=== PATIENT | female | born 1950 | race Caucasian/White ===

== ENCOUNTER 2017-08-10 12:15 | Emergency (ER) | payer MEDICARE, OTHER ==
--- OUTSIDE RECORDS SUMMARY | 2017-08-10 12:37 | XMS REPORT ---
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 Payers Type Date Identification Numbers Payment Provider Subscriber Medicare Primary Policy Number: [id number] Medicare Melissa Carlson [facility] [address] PayID: [id number] [place] [address] Problems Date Description Provider Status Onset: 08/18/2013 Benign essential hypertension Hector Villeda PA Active Onset: 08/18/2013 Malignant neoplasm of female breast Hector Villeda PA Active Onset: 11/19/2016 Mixed hyperlipidemia Jazmyne Sands MD Active Onset: 11/19/2016 Impaired fasting glycaemia Jazmyne Sands MD Active Onset: 11/19/2016 Liver function tests abnormal Jazmyne Sands MD Active Onset: 11/19/2016 Mild major depression, single episode Jazmyne Sands MD Active Onset: 11/19/2016 Adult health examination Jazmyne Sands MD Active Onset: 07/30/2017 Personal history of primary malignant Jazmyne Sands MD Active neoplasm of breast Family History Date Family Member(s) Problem(s) Comments Children 2 Siblings 3 Social History Type Date Description Comments Education Highest Level Completed Master's Degree Marital Status Lives With Alone Lives With Son 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, 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 Cigarette Use Never Smoked Cigarettes ETOH Use Consumes 1 glass of wine per day Smoking Patient has never smoked Daily Caffeine Consumes on average 2 cups of coffee per day Allergies, Adverse Reactions, Alerts Date Description Reaction Status Severity Comments 08/18/2013 Cipro active Medications Medication Date Status Form Strength Qnty SIG Indications Ordering Provider Ondansetron Active Tablets 4mg 30tabs 1 tablet by Edi Sands Dispers mouth every MD Jazmyne 8 hours as needed for nausea/vomi ting Lisinopril Active Tablets 20mg 90tabs take 1 I10 Marisa Sands tablet by MD Jazmyne mouth every day - please schedule office visit Immunizations CPT Code Status Date Vaccine Reaction Lot # [id number] Given 05/09/2017 Fluzone Highdose Age 65 And Over Given At Pharmacy Preservative & Antibiotic Free [id number] Given 05/19/2016 Fluzone Highdose Age 65 And Over [facility] Preservative & Antibiotic Free 98163 Given 07/03/2015 Tdap (Adacel) Ages 7 And Above [id number] Only [id number] Given 07/03/2015 Prevnar 13 Pneumococal Conjugate [id number] Vaccine Vital Signs Date Vital Result Comment 07/30/2017 Weight 154.00 lb Heart Rate 76 /min BP Systolic 110 mmHg BP Diastolic 70 mmHg Respiratory Rate 18 /min Height 66.75 inches 5'6.75"11/19/16 BMI (Body Mass Index) 24.3 kg/m2 05/28/2017 Weight 154.00 lb Heart Rate 76 /min BP Systolic 142 mmHg BP Diastolic 70 mmHg BP Systolic Recheck 138 mmHg BP Diastolic Recheck 80 mmHg Respiratory Rate 18 /min Height 66.75 inches 5'6.75"11/19/16 BMI (Body Mass Index) 24.3 kg/m2 11/19/2016 Weight 148.00 lb Heart Rate 84 /min BP Systolic 122 mmHg BP Diastolic 70 mmHg Respiratory Rate 18 /min Height 66.75 inches 5'6.75"11/19/16 BMI (Body Mass Index) 23.4 kg/m2 07/30/2016 Weight 155.00 lb Heart Rate 70 /min BP Systolic 142 mmHg BP Diastolic 74 mmHg Respiratory Rate 18 /min Height 66.75 inches 5'6.75" BMI (Body Mass Index) 24.5 kg/m2 04/01/2016 Weight 155.00 lb Heart Rate 96 /min BP Systolic 138 mmHg BP Diastolic 70 mmHg Respiratory Rate 18 /min Height 66.5 inches 5'6.50" BMI (Body Mass Index) 24.6 kg/m2 01/02/2016 Weight 155.00 lb Heart Rate 72 /min BP Systolic 140 mmHg No Meds This Am BP Diastolic 90 mmHg No Meds This Am BP Systolic Recheck 146 mmHg BP Diastolic Recheck 90 mmHg Respiratory Rate 18 /min Height 66.5 inches 5'6.50" BMI (Body Mass Index) 24.6 kg/m2 07/03/2015 Weight 159.00 lb Heart Rate 84 /min BP Systolic 136 mmHg BP Diastolic 88 mmHg Respiratory Rate 18 /min Height 66.5 inches 5'6.50" BMI (Body Mass Index) 25.3 kg/m2 11/01/2014 Weight 149.00 lb Heart Rate 74 /min BP Systolic 148 mmHg BP Diastolic 80 mmHg BP Systolic Recheck 142 mmHg BP Diastolic Recheck 84 mmHg Respiratory Rate 18 /min Height 66.75 inches 5'6.75" BMI (Body Mass Index) 23.5 kg/m2 04/24/2014 Weight 148.00 lb Heart Rate 70 /min BP Systolic 144 mmHg BP Diastolic 86 mmHg Respiratory Rate 18 /min Height 66.75 inches 5'6.75" 11/15/2013 BP Systolic 152 mmHg BP Diastolic 84 mmHg 11/15/2013 Body Temperature 98.7 F Weight 144.00 lb Heart Rate 100 /min BP Systolic 178 mmHg BP Diastolic 90 mmHg Respiratory Rate 17 /min Height 57 inches 4'9" 10/04/2013 BP Systolic 152 mmHg BP Diastolic 88 mmHg 10/04/2013 Body Temperature 98.1 F Weight 147.00 lb Heart Rate 80 /min BP Systolic 160 mmHg No Meds Yet BP Diastolic 90 mmHg No Meds Yet Respiratory Rate 18 /min Height 57 inches 4'9" 08/18/2013 Weight 149.00 lb Heart Rate 76 /min BP Systolic 130 mmHg BP Diastolic 88 mmHg Respiratory Rate 18 /min Height 57 inches 4'9" Results Test Date Test Result H/L Range Note Hemoglobin A1c 05/25/2017 Glycohemoglobin (A1c) 6.2 % 4.2-6.3 1, 2 eAG 131 mg/dL 1 Lipid 05/25/2017 Cholesterol 253 mg/dL High <200 1, 3 Triglycerides 103 mg/dL <150 1, 4 HDL Cholesterol 82 mg/dL >40 1, 5 LDL-Cholesterol 150 mg/dL < 100 1, 6 Laboratory test finding 05/25/2017 Thyroid Stim 2.89 uIU/mL 0.30-4.20 1 Hormone Comprehensive Met 05/25/2017 Glucose 131 mg/dL High 74-106 1 Panel-FCMG BUN 8 mg/dL 7-18 1 Creatinine 0.6 mg/dL 0.6-1.3 1 Glom Filtration Rate, Estimate >60 mL/min >60 1 If >60 mL/min >60 1, 7 BUN/Creat 13.3 ratio 1 Sodium 135 mmol/L Low 136-145 1 Potassium 4.1 mmol/L 3.5-5.1 1 Chloride 101 mmol/L 98-107 1 Carbon Dioxide 25 mmol/L 21-32 1 Anion Gap 9 mEq/L 8-16 1 Calcium 9.3 mg/dL 8.5-10.1 1 Total Protein 7.4 g/dL 6.4-8.2 1 Albumin 4.1 g/dL 3.4-5.0 1 Globulin 3.3 g/dL 1.9-4.3 1 Alb/Glob 1.2 ratio 1 Bilirubin,Total 1.2 mg/dL High 0.2-1.0 1 Sgot/Ast 182 U/L High 15-37 1 SGPT/Alt 119 U/L High 12-78 1 Alkaline Phosphatase 92 U/L 45-117 1 Ova & Parasite 05/14/2017 Cryptosporidium Specific NEGATIVE FOR CRY 8, 9 Antigen Screen Ag <SEE NOTE> Giardia Specific Antigen NEGATIVE FOR NAVYA <SEE NOTE> 8, 10 Lipid Panel 11/19/2016 Cholesterol 267 mg/dL High <200 11, 12 Triglycerides 84 mg/dL <150 11, 13 HDL Cholesterol 111 mg/dL >40 11, 14 LDL-Cholesterol 139 mg/dL < 100 11, 15 Laboratory test finding 11/19/2016 Thyroid Stim Hormone 2.28 uIU/mL 0.30- 4.20 11 Slide Review (SEE NOTE) 11, 16 Hepatitis C 11/19/2016 Signal/Cutoff ratio < 0.1 s/corat 0.0-0.9 11, 17 Antibody CBC With Auto Diff 11/19/2016 White Blood Count 6.2 K/uL 3.1-10.7 11 Red Blood Count 4.12 M/uL 3.90-5.40 11 Hemoglobin 14.3 gm/dL 11.6-15.8 11 Hematocrit 41.9 % 36.0-46.1 11 Mean Cell Volume 101.7 fl High 80.9-99.0 11 Mean Corpuscular HGB 34.7 pg High 25.9-32.7 11 Mean Corpuscular HGB Conc 34.1 g/dL 30.8-34.3 11 Platelet Count TNP K/uL 150-400 11, 18 Red Cell Distri Width SD 44.0 fl 3-47 11 Red Cell Distri Width %CV 11.9 % 11.7-14.4 11 Mean Platelet Volume 13.0 fL High 8.9-12.4 11 Neut% 66.1 % 40.4-72.8 11 Lymph % 22.4 % 20.0-42.0 11 Early % 9.2 % 4.3-13.2 11 Eo% 1.8 % 0.0-6.6 11 Bas% 0.5 % 0.0-1.1 11 Neut# 4.10 K/uL 1.8-7.0 11 Lymph # 1.39 K/uL 1.0-4.0 11 Early # 0.57 K/uL 0.3-0.9 11 Eos # 0.11 K/uL 0.0-0.5 11 Baso # 0.03 K/uL 0.0-0.1 11 BMP (Basic) 11/19/2016 Glucose 129 mg/dL High 74-106 11 BUN 11 mg/dL 7-18 11 Creatinine 0.5 mg/dL Low 0.6-1.3 11 Glom Filtration Rate, Estimate >60 mL/min >60 11 If >60 mL/min >60 11, 19 BUN/Creat 22.0 ratio 11 Sodium 137 mmol/L 136-145 11 Potassium 3.2 mmol/L Low 3.5-5.1 11 Chloride 94 mmol/L Low 98-107 11 Carbon Dioxide 31 mmol/L 21-32 11 Anion Gap 12 mEq/L 8-16 11 Calcium 10.0 mg/dL 8.5-10.1 11 Hemoglobin A1c 11/19/2016 Glycohemoglobin (A1c) 5.8 % 4.2-6.3 11, 20 eAG 120 mg/dL 11 Lipid 07/22/2016 Cholesterol 306 mg/dL High 50-199 Triglycerides 120 mg/dL 30-200 HDL 95 mg/dL High 35-85 21 Chol/ HDL Ratio 3.2 ratio Low 3.7-5.6 VLDL 24 mg/dL 2-29 LDL (Calc) 187 mg/dL High 20-99 22 Basic (BMP) 07/22/2016 Sodium 134 mmol/L 134-142 Potassium 4.8 mmol/L 3.5-5.2 Chloride 96 mmol/L Low 97-109 Carbon Dioxide 29 mmol/L 24-34 Glucose 131 mg/dL High 70-105 BUN 11 mg/dL 6-26 Creatinine 0.6 mg/dL 0.5-1.4 Calcium 10.5 mg/dL High 8.5-10.2 Anion Gap 14 mmol/L 6-14 Non Belkis Egfr >60 >60 23 Belkis Egfr >60 >60 24 Laboratory test finding 07/22/2016 Hemoglobin A1c 6.0 % High 4.1-5.9 Hepatic Panel (LFT) 07/22/2016 Total Protein 7.1 g/dL 6.0-8.0 Albumin 4.9 g/dL 3.6-4.9 Total Bilirubin 1.2 mg/dL 0.1-1.3 Direct Bilirubin 0.2 mg/dL 0.0-0.4 Alkaline Phosphatase 56 U/L 24-140 Alt 49 U/L High 3-42 Ast 40 U/L 8-42 Hepatic Panel (LFT) 03/03/2016 Total Protein 7.3 g/dL 6.0-8.0 Albumin 4.6 g/dL 3.6-4.9 Total Bilirubin 1.3 mg/dL 0.1-1.3 Direct Bilirubin 0.2 mg/dL 0.0-0.4 Alkaline Phosphatase 78 U/L 24-140 Alt 121 U/L High 3-42 Ast 224 U/L High 8-42 Basic (BMP) 03/03/2016 Sodium 135 mmol/L 134-142 Potassium 4.5 mmol/L 3.5-5.2 Chloride 100 mmol/L 97-109 Carbon Dioxide 27 mmol/L 24-34 Glucose 131 mg/dL High 70-105 BUN 11 mg/dL 6-26 Creatinine 0.7 mg/dL 0.5-1.4 Calcium 10.1 mg/dL 8.5-10.2 Anion Gap 13 mmol/L 6-14 Non Belkis Egfr >60 >60 25 Belkis Egfr >60 >60 26 Lipid 03/03/2016 Cholesterol 277 mg/dL High 50-199 Triglycerides 110 mg/dL 30-200 HDL 71 mg/dL 35-85 27 Chol/ HDL Ratio 3.9 ratio 3.7-5.6 VLDL 22 mg/dL 2-29 LDL (Calc) 184 mg/dL High 20-99 28 Laboratory test finding 04/24/2014 Cytology Pap See Note 29 Laboratory test finding 11/15/2013 Throat Culture Complete See Note 30 1 R73.01 E78.2 F32.0 I10 2 Elevated levels of HbA1c suggest the need for more aggressive treatment of glycemia. The [place] [employer] recommends that a primary goal of therapy should be a HbA1c of <7% and that physicians should re-evaluate the treatment regimen in patients with HbA1c values consistently >8%. 3 Reference Guidelines*: Desirable: ........... < 200 mg/dL Borderline High: ..... 200-239 mg/dL High: ................ >=240 mg/dL * The National Cholesterol Education Program (NCEP) 4 Reference Guidelines*: Normal: ............. < 150 mg/dL Borderline High: .... 150-199 mg/dL High: ............... 200-499 mg/dL Very High: .......... > 500 mg/dL * Source: National Cholesterol Education Program (NCEP) 5 Reference Guidelines*: Low HDL: ..... < 40 mg/dL Normal: ..... 40-60 mg/dL Desirable: ... > 60 mg/dL *The National Cholesterol Education Program(NCEP) 6 Reference Guidelines*: Optimal:........... <100 mg/dL Near Optimal....... 100-129 mg/dL Borderline High.... 130-159 mg/dL High............... 160-189 mg/dL Very High.......... >=190 mg/dL * Source: National Cholesterol Education Program (NCEP) 7 Note: Persistent reduction for 3 months or more in an eGFR <60 mL/min/1.73 m2 defines CKD. Patients with eGFR values >/=60 mL/min/1.73 m2 may also have CKD if evidence of persistent proteinuria is present. The original MDRD equation for estimated GFR is not valid for patients less than 18 years of age. Additional information may be found at www.kdoqi.org. 8 R19.5 9 NEGATIVE FOR CRYPTOSPORIDIUM SPECIFIC ANTIGEN 10 NEGATIVE FOR GIARDIA SPECIFIC ANTIGEN. The specimen will be held for 5 days. Additional testing may be performed upon request if the antigen tests are negative, and the patient is still symptomatic or has traveled to an endemic region. Method: Alere Quik Chek Rapid Membrane Enzyme Immunoassay 11 E11.9 I10 Z11.59 E78.2 F32.0 12 Reference Guidelines*: Desirable: ........... < 200 mg/dL Borderline High: ..... 200-239 mg/dL High: ................ >=240 mg/dL * The National Cholesterol Education Program (NCEP) 13 Reference Guidelines*: Normal: ............. < 150 mg/dL Borderline High: .... 150-199 mg/dL High: ............... 200-499 mg/dL Very High: .......... > 500 mg/dL * Source: National Cholesterol Education Program (NCEP) 14 Reference Guidelines*: Low HDL: ..... < 40 mg/dL Normal: ..... 40-60 mg/dL Desirable: ... > 60 mg/dL *The National Cholesterol Education Program(NCEP) 15 Reference Guidelines*: Optimal:........... <100 mg/dL Near Optimal....... 100-129 mg/dL Borderline High.... 130-159 mg/dL High............... 160-189 mg/dL Very High.......... >=190 mg/dL * Source: National Cholesterol Education Program (NCEP) 16 Instrument flagged sample for slide review. Less than 10% Bands seen, no other immature WBC's seen. RBC morphology essentially normal. Platelet estimate=SLIGHT DECREASE 17 INFCE Result Units: s/co ratio Negative: < 0.8 Indeterminate: 0.8 - 0.9 Positive: > 0.9 The CDC recommends that a positive HCV antibody result be followed up with a HCV Nucleic Acid Amplification test ([id number]). Performed at: - [facility] [address] [id number] [employer]: Shanon Mendez MD, Phone: [phone] UNABLE TO REPORT PLT COUNT DUE TO PLT CLUMPING. HOWEVER, PLATELET ESTIMATE FROM PERIPHERAL SMEAR APPEARS TO BE SLIGHTLY DECREASED. 19 Note: Persistent reduction for 3 months or more in an eGFR <60 mL/min/1.73 m2 defines CKD. Patients with eGFR values >/=60 mL/min/1.73 m2 may also have CKD if evidence of persistent proteinuria is present. The original MDRD equation for estimated GFR is not valid for patients less than 18 years of age. Additional information may be found at www.kdoqi.org. 20 Elevated levels of HbA1c suggest the need for more aggressive treatment of glycemia. The [place] [employer] recommends that a primary goal of therapy should be a HbA1c of <7% and that physicians should re-evaluate the treatment regimen in patients with HbA1c values consistently >8%. 21 Per NCEP ATP III Guidelines: Results lower than 40 mg/dL are suggestive of increased risk for coronary artery disease. Results > or=to 60 mg/dL are considered a negative risk factor. 22 Per NCEP ATP III Guidelines: Normal Population <130 Patients with medical conditions: CHD/DM Optimal: <100 Borderline high: 130-159 High: 160-189 Very high: >189 23 Concerning GFR Guidelines: Normal function or mild renal disease, if clinically at risk: >/=60 mL/min Moderately decreased: 30-59 Severely decreased: 15-29 Renal failure: <15 Glomerular Filtration Rate (GFR) is estimated based on the MDRD equation, which assumes a steady state for creatinine as recommended by the National Kidney Disease Education Program in conjunction with the National Institutes of Health and the National Kidney Foundation. Clinical conditions in which it may be necessary to measure GFR by using clearance methods include extremes of age and body size, severe malnutrition or obesity, diseases of skeletal muscle, paraplegia or quadriplegia, vegetarian diet, rapidly changing kidney function, and calculation of the dose of potentially toxic drugs that are excreted by the kidneys. 24 Concerning GFR Guidelines for Americans: Normal function or mild renal disease, if clinically at risk: >/=60 mL/min Moderately decreased: 30-59 Severely decreased: 15-29 Renal failure: <15 25 Concerning GFR Guidelines: Normal function or mild renal disease, if clinically at risk: >/=60 mL/min Moderately decreased: 30-59 Severely decreased: 15-29 Renal failure: <15 Glomerular Filtration Rate (GFR) is estimated based on the MDRD equation, which assumes a steady state for creatinine as recommended by the National Kidney Disease Education Program in conjunction with the National Institutes of Health and the National Kidney Foundation. Clinical conditions in which it may be necessary to measure GFR by using clearance methods include extremes of age and body size, severe malnutrition or obesity, diseases of skeletal muscle, paraplegia or quadriplegia, vegetarian diet, rapidly changing kidney function, and calculation of the dose of potentially toxic drugs that are excreted by the kidneys. 26 Concerning GFR Guidelines for Americans: Normal function or mild renal disease, if clinically at risk: >/=60 mL/min Moderately decreased: 30-59 Severely decreased: 15-29 Renal failure: <15 27 Per NCEP ATP III Guidelines: Results lower than 40 mg/dL are suggestive of increased risk for coronary artery disease. Results > or=to 60 mg/dL are considered a negative risk factor. 28 Per NCEP ATP III Guidelines: Normal Population <130 Patients with medical conditions: CHD/DM Optimal: <100 Borderline high: 130-159 High: 160-189 Very high: >189 29 Cytology Laboratory [address] [place] [address], [address] [place] [address] CYTOLOGY REPORT Name: Melissa Carlson : 1950 (Age: 63) Sex: F Location[place] [facility] [place] Rec. # [id number] Date Collected: 04/24/2014 Billing #: [id number] Date Received: 04/24/2014 Requisition # [id number] Physician(s): HECTOR DURAN Source of Specimen: ENDOCERVICAL/ECTOCERVICAL THIN PREP Clinical Information: Date of Last Menstrual Period: 15 yrs ago Menstrual History: Post menopausal HPV/Infection History: HPV Positive: in her 20's Interpretation: NEGATIVE FOR INTRAEPITHELIAL LESION OR MALIGNANCY. Specimen Adequacy: SATISFACTORY FOR EVALUATION. Additional Findings: ENDOCERVICAL/TRANSFORMATION ZONE ABSENT. tfn Electronic Signature RICKEY Mcqueen (ASCP) Reported: 04/26/2014 [facility] Laboratory [facility] ICD-9 Code(s) V72.31 30 NORMAL THROAT POLA Procedures Date CPT Code Description Status Comment 06/19/2017 08471 Echography Pelvic Limited Completed Or Follow-Up 01/15/2017 Colonoscopy Completed adenoma - repeat in 5 years Document: 01/15/17 - Surgical Pathology ReportsDocument: 02/06/17 - Gastroenterology 01/05/2017 Mammogram Completed Document: 01/05/17 - Digital Mammography Screening 03/18/2016 96163 Bone Density Study (Dexa) Completed Axial Skeleton (Hips,Pelvis,Spine) 03/18/2016 Bone Mineral Density Test Completed Encounters Type Date Location Provider CPT E/M Dx Office Visit 05/28/2017 2:45p [facility] [place] [address] F32.0 R73.01 E78.2 R94.5 I10 C50.919 R11.10 Office Visit 11/19/2016 9:30a [facility] [place] [address] I10 E78.2 R73.01 R94.5 F32.0 R11.10 Z12.31 Z12.11 Office Visit 07/30/2016 10:30a [facility] Hector Villeda [place] G0439 Z00.00 I10 E78.2 E11.9 Office Visit 04/01/2016 8:45a [place] [address] I10 R94.5 R73.01 E78.2 Office Visit 01/02/2016 9:00a [place] [address] I10 Office Visit 11/01/2014 8:45a [place] [address] 401.1 472.0 Plan of Care 07/30/2017 - Jazmyne Sands MDZ00.00 Encntr for general adult medical exam w/o abnormal findingsComments:annual medicare well visit done. screening for depression negative (PHQ2 score 0) updated list ofconsulting doctors. updated medication list see medicare wellness exam form .Follow up:6 mo follow-up with labs zzyvmY27.0 Major depressive disorder, single episode, mildComments:doing much better on no [id number] Essential (primary) hypertensionComments:at goal on current medication - refill today - check labsE78.2 Mixed hyperlipidemiaNew Labs:LDL Cholesterol ProfileComments:diet controlled.R73.01 Impaired fasting glucoseNew Labs:Comprehensive Metabolic PanelGlycohemoglobin [id number]:diet controlled - she is working on weight loss.R94.5 Abnormal results of liver function studiesNew Labs:Liver Function TestsComments:reviewed ultrasound - this shows probably fatty liver - repeat labs today - if worsening refer to GI. if improving, will follow.Follow up: [facility] give [facility] Personal history of malignant neoplasm of breastComments:no new masses - will be due for her mammogram after M79.671 Pain in RIGHT footComments:will refer to podiatry for glass in toe.Referral:Frankie Landers DPM,
[2017-08-10 13:09] VITALS: BP 159/96
--- NOTE | 2017-08-10 14:08 | UC ---
Lower Extremity/Ankle HPI - HPI Summary HPI Summary: Pt presents with c/o of possible FB in right great toe. Pt states she think she stepped on piece of broken glass about a month ago and the wound has not completely healed since initial injury. - History of Current Complaint Chief Complaint: KENkin Stated Complaint: RIGHT FOOT COMPLAINT Time Seen by Provider: 08/10/17 13:34 Hx Obtained From: Patient ?: No Onset/Duration: Sudden Onset, Lasting Weeks, Still Present Severity Initially: Mild Severity Currently: Mild Aggravating Factor(s): Other - riding a bicycle Alleviating Factor(s): Rest Able to Bear Weight: Yes - Risk Factors Gout Risk Factors: Age Over 40 DVT Risk Factors: Negative Septic Arthritis Risk Factor: Negative - Allergies/Home Medications Allergies/Adverse Reactions: Allergies Allergy/AdvReac Type Severity Reaction Status Date / Time Ciprofloxacin [From Cipro] Allergy Rash Verified 08/10/17 13:04 PMH/Surg Hx/FS Hx/Imm Hx Previously Healthy: Yes - Surgical History Surgical History: Yes Surgery Procedure, Year, and Place: 07/2015 Lleft elbow fracture [facility] [place] RIGHT BREAST LUMPECTOMY WITH AXILLARY DISSECTION, [facility]. TONSILLECTOMY A CHILD. COSMETIC NASAL/CHIN SURGERY [facility]. 1993 LEFT KNEE ACL REPAIR [facility]. LAPAROSCOPIC REMOVAL OF ABDOMINAL ABSCESS,. OPEN RUPTURED APPENDECTOMY, [facility]. 2006 LEFT KNEE SURGERY, [facility] - Family History Known Family History: Positive: Cardiac Disease - Social History Occupation: Retired Lives: With Family Alcohol Use: Occasionally Alcohol Amount: STATES ONLY WHITE WINE, WILL REFRAIN OVER WEEKEND Substance Use Type: None Smoking Status (MU): Never Smoked Tobacco Have You Smoked in the Last Year: No - Immunization History Most Recent Influenza Vaccination: Not the Most Recent Pneumonia Vaccination: 06/23/15 Review of Systems Constitutional: Negative Skin: Other - chronic wound Eyes: Negative ENT: Negative Respiratory: Negative Cardiovascular: Negative Gastrointestinal: Negative Genitourinary: Negative Motor: Negative Neurovascular: Negative Musculoskeletal: Negative Neurological: Negative Psychological: Negative Is Patient Immunocompromised?: No All Other Systems Reviewed And Are Negative: Yes Physical Exam Triage Information Reviewed: Yes Appearance: Well-Appearing Vital Signs: Initial Vital Signs Temp 98.4 F 08/10/17 13:04 Pulse 93 08/10/17 13:04 Resp 18 08/10/17 13:04 BP 159/96 08/10/17 13:04 Vital Signs Reviewed: Yes Eye Exam: Normal ENT Exam: Normal Dental Exam: Normal Neck exam: Normal Respiratory Exam: Normal Cardiovascular Exam: Normal Musculoskeletal Exam: Normal Neurological Exam: Normal Psychological Exam: Normal Skin Exam: Other - 5mm linear wound with dry scab, callous on right great toe, medial aspect, mid toe, rough edge, not sharp no discharge, non erythematous. mild tenderness. Lower Extremity Course/Dx - Differential Dx/Diagnosis Differential Diagnosis/HQI/PQRI: Foreign Body, Infection Provider Diagnoses: chronic wound. Fb? Discharge - Discharge Plan Condition: Stable Disposition: HOME Patient Education Materials: Acute Wound Care (ED), Acute Wounds (ED) Referrals: Jazmyne Sands MD [Primary Care Provider] - If Needed Additional Instructions: Please follow up with your PCP or return to clinic as needed. Please soak the affected toe in warm water and epsom salts at least once a day and use a clean, wet washcloth to gentle wash/debride the affected area. You may want to try a pumice stone to the area as well.
--- NOTE | 2017-08-10 14:30 | RAD ---
Indication: Evaluate for foreign body. 3 views of the right great toe demonstrates no evidence of radiopaque foreign body. IMPRESSION: NO RADIOPAQUE FOREIGN BODY IS NOTED.
== END 2017-08-10 14:27 | disposition home or self-care (01) ==
LOC: UCCORT 12:15
DX: S91.101A Unspecified open wound of right great toe without damage to nail, initial encounter (principal); X58.XXXA Exposure to other specified factors, initial encounter; Y93.9 Activity, unspecified; Y92.9 Unspecified place or not applicable; Z72.89 Other problems related to lifestyle
CPT/HCPCS: 99211; G0463

== ENCOUNTER 2017-12-15 15:13 | Emergency (ER) | payer MEDICARE ==
--- OUTSIDE RECORDS SUMMARY | 2017-12-15 15:45 | XMS REPORT ---
:1950 External Reference #:[id number] Author Organization [facility] Address [address], [address] [place] [address] Phone [phone] Care Team Providers Name Role Phone Jazmyne Sands MD Care Team Information Wireless Network Engineer Unavailable Jazmyne Sands MD Primary Care Physician Unavailable Payers Type Date Identification Numbers Payment Provider Subscriber Commercial Policy Number: [id number] [employer] Melissa Carlson PayID: [id number] [address] [address] [place] [address] Problems Date Description Provider Status Onset: 09/21/2017 Acquired renal cystic disease Star Reynolds M.D. Active Onset: 09/18/2017 Cystic disease of kidney Trever Martines MD Active Onset: 09/18/2017 Chronic nonalcoholic liver Trever Martines MD Active disease Onset: 09/18/2017 Liver function tests abnormal Trever Martines MD Active Onset: 02/06/2017 First degree hemorrhoids Trever Martines MD Active Onset: 02/06/2017 Benign neoplasm of colon Trever Martines MD Active Onset: 06/28/2014 Screening for malignant neoplasm Wilmar Guido of h[facility] Onset: 12/10/2016 Mixed hyperlipidemia Trever Martines MD Active Family History Date Family Member(s) Problem(s) Comments General Non Contributory : (age 69 Father due to Cancer Renal cancer Years) Mother due to Hypertension () : (age 86 Mother due to Heart Disease Years) Social History Type Date Description Comments Marital Status Patient is Lives With Negative For Alone Home Environment Lives Alone Diet Patient follows no dietary restrictions 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 Cigarette Use Never Smoked Cigarettes Smokeless Tobacco Never Used Smokeless Tobacco ETOH Use Consumes 1 glass of wine per day pt says 1/wk ETOH Use Rarely consumes wine Smoking Patient has never smoked Recreational Drug Use Denies Drug Use Daily Caffeine Patient consumes minimal amounts of 1 cup coffee daily caffeine Allergies, Adverse Reactions, Alerts Date Description Reaction Status Severity Comments 06/27/2014 Cipro active rash Medications Medication Date Status Form Strength Qnty SIG Indications Ordering Provider Lisinopril / Active Tablets 20mg Take 1 Unknown 0000 Tablet By Mouth Every Day Ondansetron / Active Tablets 4mg 1 by mouth Unknown 0000 Dispers every 4 hour as needed Multi Adult / Active Chewtabs 1 a day - Unknown Gummies 0000 sometimes forgets Golytely 12/10/ Hx Solution 236gm 4000ml drink half Z12.11 Trever Martines 2017 Rec the evening MD before and half the morning of the procedure (1 cup every 10') Dulcolax 12/10/ Hx Tablets DR 5mg 4tabs 4 tablets Z12.11 Trever Martines 2016 taken a 8pm MD the day before the procedure Magnesium 12/10/ Hx Solution 1.745GM/30 296ml 1 bottle po Z12.11 Trever Martines Citrate 2017 ML x one as MD directed Aleve / Hx Capsules 220mg 1 when Unknown 0000 needed Vital Signs Date Vital Result Comment 11/18/2017 BP Systolic Sitting Right Arm 132 mmHg BP Diastolic Sitting Right Arm 78 mmHg Heart Rate 87 /min Respiratory Rate 18 /min Height 67.5 inches 5'7.50" Weight 146.00 lb BMI (Body Mass Index) 22.5 kg/m2 BSA (Body Surface Area) 1.78 m2 [place] body weight in kilograms 62 09/21/2017 BP Systolic 129 mmHg BP Diastolic 81 mmHg Body Temperature 98.1 F Heart Rate 61 /min Respiratory Rate 14 /min Height 67.5 inches 5'7.50" [place] body weight in kilograms 62 O2 % BldC Oximetry 99 % Pain Level 0 09/18/2017 BP Systolic Sitting Left Arm 120 mmHg BP Diastolic Sitting Left Arm 80 mmHg Heart Rate 72 /min Respiratory Rate 16 /min Height 67 inches 5'7" Weight 149.00 lb BMI (Body Mass Index) 23.3 kg/m2 BSA (Body Surface Area) 1.78 m2 [place] body weight in kilograms 61 02/06/2017 BP Systolic Sitting Left Arm 140 mmHg BP Diastolic Sitting Left Arm 82 mmHg Heart Rate 80 /min Respiratory Rate 16 /min Height 67 inches 5'7" Weight 150.00 lb BMI (Body Mass Index) 23.5 kg/m2 BSA (Body Surface Area) 1.79 m2 [place] body weight in kilograms 61 12/10/2016 BP Systolic Sitting Left Arm 140 mmHg BP Diastolic Sitting Left Arm 72 mmHg Heart Rate 76 /min Respiratory Rate 16 /min Height 67 inches 5'7" Weight 155.00 lb BMI (Body Mass Index) 24.3 kg/m2 BSA (Body Surface Area) 1.81 m2 [place] body weight in kilograms 61 06/28/2014 BP Systolic Sitting Right Arm 142 mmHg BP Diastolic Sitting Right Arm 85 mmHg Heart Rate 90 /min Respiratory Rate 16 /min Height 67 inches 5'7" Weight 147.00 lb BMI (Body Mass Index) 23.0 kg/m2 BSA (Body Surface Area) 1.77 m2 Results Test Date Test Result H/L Range Note Laboratory test finding 09/18/2017 Ferritin 1107 ng/mL High 8-252 1 HCV Rna,Maritza,Qual,RFLX Quant Negative Negative 1, 2 Iron-Tibc-%Sat 09/18/2017 Serum Iron 161 g/dL 50-170 1 Total Iron Binding Capacity 333 g/dL 250-450 1 Transferrin %Saturation 48 % 12-57 1 Celiac Disease Comp AB Profile 09/18/2017 Immunoglobulin A 131 mg/dL 87- 352 1 Antigliadin Abs, IgG 7 units 0-19 1, 3 Antigliadin Abs, IgA 2 units 0-19 1, 4 Endomysial IgA Antibody Negative Negative 1 t-Transglutaminase IgA <2 U/mL 0-3 1, 5 t-Transglutaminase IgG <2 U/mL 0-5 1, 6 Laboratory test 09/18/2017 Anti-Nuclear Antibodies Negative AU/mL Negative 1 finding Direct Actin (Smooth Muscle) Antibody 8 units 0-19 1, 7 Mitochondrial (M2) Antibodies 0.4 units 0.0-20.0 1, 8 Onaby-6-Oxqcroeqrph,Serum 96 mg/dL 90-200 1 Ceruloplasmin 28.5 mg/dL 19.0-39.0 1 Protein Electro.,S 09/18/2017 Protein,Total,Serum 6.9 g/dL 6.0-8.5 1 Albumin 3.8 g/dL 2.9-4.4 1 Rvgvo-3-Wtclrham 0.2 g/dL 0.0-0.4 1 Gvbuk-8-Ymajwtbv 0.9 g/dL 0.4-1.0 1 Beta Globulin 1.2 g/dL 0.7-1.3 1 Gamma Globulin 0.8 g/dL 0.4-1.8 1 M-Arsenio Not Observed g/dL Not Observed 1 Globulin, Total 3.1 g/dL 2.2-3.9 1 A/G Ratio 1.2 0.7-1.7 1 Please Note: (SEE NOTE) 1, 9 P E Interpretation, Serum (SEE NOTE) 1, 10 PDF . 1 Laboratory test finding 09/18/2017 Hepatitis A Antibody -IgM Negative Negative 1 Hepatitis A AB, Total Negative Negative 1 Hepatitis B Core Antibody-IgM Negative Negative 1, 11 Hep B Core AB Total Negative Negative 1 HCV Rna,Maritza,Quant,RFLX [place] <pending> 1 Hepatitis C Antibody < 0.1 s/corat 0.0-0.9 1, 12 Xray 06/19/2017 Ultrasound, Abdomen Limited <pending> Laboratory test finding 12/11/2016 Glycohemoglobin A1c <pending> Laboratory test finding 04/24/2014 Cytology Pap See Note Laboratory test finding 11/15/2013 Throat Culture Complete See Note 1 R94.5 2 Negative: HCV RNA Not Detected Performed at: - [facility] [id number] Wafer Fabrication Operator: Shanon Mendez MD, Phone: [phone] Performed at: - [facility] [id number] Wafer Fabrication Operator: Alberto King MD, Phone: [phone] 3 Negative 0 - 19 Weak Positive 20 - 30 Moderate to Strong Positive >30 4 Negative 0 - 19 Weak Positive 20 - 30 Moderate to Strong Positive >30 5 Negative 0 - 3 Weak Positive 4 - 10 Positive >10 Tissue Transglutaminase (tTG) has been identified as the endomysial antigen. Studies have demonstr- ated that endomysial IgA antibodies have over 99% specificity for gluten sensitive enteropathy. 6 Negative 0 - 5 Weak Positive 6 - 9 Positive >9 7 Negative 0 - 19 Weak positive 20 - 30 Moderate to strong positive >30 Actin Antibodies are found in 52-85% of patients with autoimmune hepatitis or chronic active hepatitis and in 22% of patients with primary biliary cirrhosis. 8 Negative 0.0 - 20.0 Equivocal 20.1 - 24.9 Positive >24.9 Mitochondrial (M2) Antibodies are found in 90-96% of patients with primary biliary cirrhosis. 9 Protein electrophoresis scan will follow via computer, mail, or ethnology teacher delivery. 10 The SPE pattern appears essentially unremarkable. Evidence of monoclonal protein is not apparent. 11 Performed at: - [facility] [address] [id number] Wafer Fabrication Operator: Shanon Mendez MD, Phone: [phone] 12 INFCE Result Units: s/co ratio Negative: < 0.8 Indeterminate: 0.8 - 0.9 Positive: > 0.9 The CDC recommends that a positive HCV antibody result be followed up with a HCV Nucleic Acid Amplification test (009459). Procedures Date CPT Code Description Status Comment 01/15/2017 85454 Colonoscopy With Polypectomy Completed 01/15/2017 60777 Colonoscopy With Biopsy Completed 01/17/2014 Bone Mineral Density Test Completed 08/12/2013 Mammogram Completed 11/17/2008 Colonoscopy Completed at [place]/ no polyps per pt 12/12/1998 Mammogram Completed 12/06/1998 Mammogram Completed Encounters Type Date Location Provider CPT E/M Dx Office Visit 11/18/2017 3:00[place] [address] R94.5 K76.0 N28.1 Office Visit 09/21/2017 4:00p Urology Star Reynolds M.D. 46505 N28.1 Office Visit 09/18/2017 10:45[place] [address] R94.5 K76.0 Q61.8 Office Visit 02/06/2017 10:00[place] [address] K63.5 K64.0 Office Visit 12/10/2016 2:15[place] [address] Z12.11 Office Visit 06/28/2014 8:30a Surgical Office Dajuan Luciano, [address]22 V76.51 Elza Plan of Care Future Appointment(s):02/19/2018 11:30 am - Trever Martines MD at GI03/25/2018 4:00 pm - Star Reynolds M.D. at [email or web address]/18/2017 - Trever Martines, MDR94.5 Abnormal results of liver function studiesComments:Likely related to her h/o ETOH use but Ferritin is elevated along with % saturation was 48% - she does not want to proceed with liver biopsy but wants to consider checking another set of labs in couple of monthsFollow up:F/U in 3 vvgdufZ15.0 Fatty (change of) liver, not elsewhere classifiedComments:Likely related to previous ETOH use rather than FINN - she has stopped ETOHN28.1 Cyst of kidney, acquiredComments:She has seen Dr Reynolds
[2017-12-15 16:15] VITALS: BP 167/94
--- NOTE | 2017-12-15 17:15 | UC ---
UC General HPI - HPI Summary HPI Summary: pt is c/o a sore throat and cough since attending an outdoor graduation in the cold last week. she wants to see if it is strep throat. the past day or 2 she developed some vomiting and diarrhea. she states she has zofran at home but didn 't take it. she wants to just try one here. no travel hx outside the country and no recent antibiotic use. denies fever, cp and abdominal pain. - History of Current Complaint Chief Complaint: UCRespiratory Stated Complaint: NAUSEA, VOMITING, SORE THROAT Time Seen by Provider: 12/15/17 17:08 Hx Obtained From: Patient Onset/Duration: Gradual Onset Timing: Constant Pain Intensity: 0 Associated Signs & Symptoms: Positive: Cough, Diarrhea, Nausea, Vomiting. Negative: Dysuria, Fever, SOB, Wheezing - Allergy/Home Medications Allergies/Adverse Reactions: Allergies Allergy/AdvReac Type Severity Reaction Status Date / Time ciprofloxacin Allergy Rash Verified 12/15/17 16:16 PMH/Surg Hx/FS Hx/Imm Hx - Additional Past Medical History Additional PMH: CA, "GI issues"-currently under the care of GI, Dr Martines. cataract surgery last week. murmur. liver problem. - Surgical History Surgical History: Yes Surgery Procedure, Year, and Place: 07/2015 [place]left elbow fracture [facility] [place]. [place] RIGHT BREAST LUMPECTOMY WITH AXILLARY DISSECTION, [facility]. TONSILLECTOMY A CHILD. COSMETIC NASAL/CHIN SURGERY [facility]. 1993 LEFT KNEE ACL REPAIR [facility]. LAPAROSCOPIC REMOVAL OF ABDOMINAL ABSCESS,. OPEN RUPTURED APPENDECTOMY, [facility]. 2006 LEFT KNEE SURGERY, [facility] - Family History Known Family History: Positive: None, Cardiac Disease - Social History Lives: With Family Alcohol Use: Daily Alcohol Amount: wine Substance Use Type: None Smoking Status (MU): Never Smoked Tobacco Have You Smoked in the Last Year: No - Immunization History Most Recent Influenza Vaccination: Not the Most Recent Pneumonia Vaccination: 06/23/15 Vaccination Up to Date: Yes Review of Systems Constitutional: Negative Skin: Negative Eyes: Negative ENT: Sore Throat Respiratory: Cough Cardiovascular: Negative Gastrointestinal: Vomiting, Diarrhea, Nausea Genitourinary: Negative Motor: Negative Neurovascular: Negative Musculoskeletal: Negative Neurological: Negative Psychological: Negative Is Patient Immunocompromised?: No All Other Systems Reviewed And Are Negative: Yes Physical Exam Triage Information Reviewed: Yes Appearance: Well-Appearing Vital Signs: Initial Vital Signs Temp 98.7 F 12/15/17 16:06 Pulse 96 12/15/17 16:06 Resp 16 12/15/17 16:06 BP 167/94 12/15/17 16:06 Pulse Ox 96 12/15/17 16:06 Vital Signs Reviewed: Yes Eyes: Positive: Conjunctiva Clear ENT: Positive: Pharyngeal erythema, TMs normal, Uvula midline. Negative: Nasal congestion, Nasal drainage, Tonsillar swelling, Tonsillar exudate, Trismus, Muffled voice, Hoarse voice Neck: Positive: Supple, Nontender, No Lymphadenopathy Respiratory: Positive: Lungs clear, Normal breath sounds Cardiovascular: Positive: RRR, Pulses Normal, Murmur:Sys:Grade _?_/ - 2 Abdomen Description: Positive: Nontender, No Organomegaly, Soft. Negative: Distended, Guarding Bowel Sounds: Positive: Present Musculoskeletal: Positive: ROM Intact, No Edema Neurological: Positive: Alert Psychological: Positive: Age Appropriate Behavior Skin Exam: Normal Diagnostics - Laboratory Diagnostic Studies Completed/Ordered: rapid strep=neg Course/Dx - Course Course Of Treatment: non toxic. no acute abdomen. rapid strep=neg. no concern for pneumonia. tx supportive and pt already has zofran. no indication for antibiotics. need for close f/u and recheck d/w pt. - Differential Dx - Multi-Symptom Provider Diagnoses: sore throat, cough, vomiting, diarrhea Discharge - Sign-Out/Discharge Documenting (check all that apply): Discharge/Admit/Transfer - Discharge Plan Condition: Stable Disposition: HOME Patient Education Materials: Pharyngitis (ED), Acute Cough (ED), Acute Nausea and Vomiting (ED), Acute Diarrhea (ED) Referrals: Jazmyne Sands MD [Primary Care Provider] - 5 Days - Billing Disposition and Condition Condition: STABLE Disposition: HOME
[2017-12-15] MEDS ORDERED: Ondansetron ODT TAB* 4 MG PO ONE (17:21)
== END 2017-12-15 17:49 | disposition home or self-care (01) ==
LOC: UCCORT 15:13
DX: J02.0 Streptococcal pharyngitis (principal); Z88.3 Allergy status to other anti-infective agents; K76.9 Liver disease, unspecified; K92.9 Disease of digestive system, unspecified
CPT/HCPCS: 87651; 99211; A9270-GY; G0463

== ENCOUNTER 2018-03-18 08:16 | Emergency (ER) | payer MEDICARE ==
[2018-03-18 08:32] VITALS: BP 128/74
--- NOTE | 2018-03-18 08:53 | UC ---
Lower Extremity/Ankle HPI - HPI Summary HPI Summary: The patient is a 67-year-old female with a five-day history of a foreign body in her left foot. Onset occurred when she was walking barefoot on her driveway. The step causing a sharp pain. He has noted some purulent discharge from the foreign body entry site. She has had no fever or chills she denies any red streaks. Her last tetanus shot was 2014. - History of Current Complaint Chief Complaint: Ramses Stated Complaint: LEFT FOOT Time Seen by Provider: 03/18/18 08:43 Hx Obtained From: Patient Onset/Duration: Sudden Onset, Lasting Days Severity Initially: Mild Severity Currently: Mild Pain Intensity: 2 Pain Scale Used: 0-10 Numeric Alleviating Factor(s): Rest, Elevation Able to Bear Weight: Yes Feet (Multiple View): 1 - FB entrance site - Allergies/Home Medications Allergies/Adverse Reactions: Allergies Allergy/AdvReac Type Severity Reaction Status Date / Time ciprofloxacin Allergy Rash Verified 03/18/18 08:33 Home Medications: Home Medications Callus Removers 1 unit TOPICAL DAILY 03/18/18 [History Confirmed 03/18/18] Magnesium Sulfate CRYSTAL* [Epsom Salt*] 1 applic .SEE ORDER TID PRN 03/18/18 [ History Confirmed 03/18/18] PMH/Surg Hx/FS Hx/Imm Hx Previously Healthy: Yes Cardiovascular History: Hypertension - Surgical History Surgical History: Yes Surgery Procedure, Year, and Place: b/l eye lids 03/15/18 [facility] 2015 Left elbow fracture [facility] [place]. 1998 RIGHT BREAST LUMPECTOMY WITH AXILLARY DISSECTION, [facility]. TONSILLECTOMY A CHILD. COSMETIC NASAL/CHIN SURGERY [facility]. 1993 LEFT KNEE ACL REPAIR [facility]. LAPAROSCOPIC REMOVAL OF ABDOMINAL ABSCESS,. OPEN RUPTURED APPENDECTOMY, [facility]. 2006 LEFT KNEE SURGERY, [facility] - Family History Known Family History: Positive: Cardiac Disease - Social History Alcohol Use: Occasionally Alcohol Amount: wine Substance Use Type: None Smoking Status (MU): Never Smoked Tobacco Have You Smoked in the Last Year: No - Immunization History Most Recent Influenza Vaccination: Not the Most Recent Tetanus Shot: Unknown Most Recent Pneumonia Vaccination: 06/23/15 Vaccination Up to Date: Yes Review of Systems Constitutional: Negative Skin: Negative Eyes: Negative ENT: Negative Respiratory: Negative Cardiovascular: Negative Gastrointestinal: Negative Genitourinary: Negative Motor: Negative Neurovascular: Negative Musculoskeletal: Negative Neurological: Negative Psychological: Negative All Other Systems Reviewed And Are Negative: Yes Physical Exam Triage Information Reviewed: Yes Appearance: Well-Appearing, No Pain Distress, Well-Nourished Vital Signs: Initial Vital Signs Temp 97.7 F 03/18/18 08:22 Pulse 68 03/18/18 08:22 Resp 18 03/18/18 08:22 BP 128/74 03/18/18 08:22 Pulse Ox 100 03/18/18 08:22 Vital Signs Reviewed: Yes Neck: Positive: Supple, Nontender, No Lymphadenopathy Respiratory: Positive: Lungs clear, Normal breath sounds, No respiratory distress, No accessory muscle use Musculoskeletal: Positive: Other: - see image/antalgic gait Procedures - Procedure Summary Procedure Summary: PROCEDURE: FB REMOVAL LEFT FOOT PATIENT CAME HERE EXPECTING FB REMOVAL PROCEDURE EXPLAINED TIME OUT STERILE PREP ANEST WITH 2 CC LIDOCAINE SMALL INCISION MADE WITH #11 BLADE AREA EXPLORED FB LOCATED AND REMOVE WITH SPLINTER FORCEPS (GLASS0 AREA CLEANED AND STERILE DRESSING APPLIED TOLERATED PROCEDURE WELL Diagnostics - Radiology No standard instances Xray Interpretation: Positive (See Comments) - SMALL FOREIGN BODY ALONG THE PLANTAR ASPECT Radiology Interpretation Completed By: Radiologist Lower Extremity Course/Dx - Differential Dx/Diagnosis Provider Diagnoses: FOREIGN BODY REMOVAL LEFT FOOT Discharge - Sign-Out/Discharge Documenting (check all that apply): Patient Departure All imaging exams completed and their final reports reviewed: Yes - Discharge Plan Condition: Stable Disposition: HOME Prescriptions: Cephalexin CAP* [Keflex CAP*] 500 mg PO QID #12 cap Patient Education Materials: Soft Tissue Foreign Body (ED) Referrals: Jazmyne Sands MD [Primary Care Provider] - If Needed Additional Instructions: warm soapy soaks recheck in three days if not completely pain free - Billing Disposition and Condition Condition: STABLE Disposition: Home
[2018-03-18] MEDS ORDERED: Lidocaine 2% PF * 5 ML VIAL INJ ONE (09:07)
--- NOTE | 2018-03-18 09:12 | RAD ---
INDICATION: Foreign body. TECHNIQUE: 3 views of the left foot were obtained. FINDINGS: The bones are in normal alignment. No fracture is seen. There is linear calcific density which projects between the plantar aspect of the bases of the third and fourth proximal phalanges most consistent with a foreign body. IMPRESSION: SMALL FOREIGN BODY ALONG THE PLANTAR ASPECT OF THE FOOT DESCRIBED.
== END 2018-03-18 10:05 | disposition home or self-care (01) ==
LOC: UCCORT 08:16
DX: S90.852A Superficial foreign body, left foot, initial encounter (principal); W22.8XXA Striking against or struck by other objects, initial encounter; Y93.9 Activity, unspecified; Y92.9 Unspecified place or not applicable; Z88.1 Allergy status to other antibiotic agents; I10 Essential (primary) hypertension
CPT/HCPCS: 28190; 99212; G0463

== ENCOUNTER 2018-04-02 09:08 | Emergency (ER) | payer MEDICARE ==
[2018-04-02 11:24] VITALS: BP 137/73
--- NOTE | 2018-04-02 11:51 | UC ---
Lower Extremity/Ankle HPI - HPI Summary HPI Summary: Had a piece of glass removed from the bottom of her left foot on 03/18/18. Patient returns stating pain is persistent. Unable to weight-bear without significant discomfort. Concern there may be retained foreign body. No redness of the skin. No drainage. - History of Current Complaint Chief Complaint: KENkin Stated Complaint: LT FOOT INJURY Time Seen by Provider: 04/02/18 11:39 Hx Obtained From: Patient Onset/Duration: Sudden Onset, Lasting Weeks, Still Present Severity Initially: Moderate Severity Currently: Moderate Pain Intensity: 1 Pain Scale Used: 0-10 Numeric Aggravating Factor(s): Standing, Ambulation Alleviating Factor(s): Rest Able to Bear Weight: Yes - WITH PAIN - Allergies/Home Medications Allergies/Adverse Reactions: Allergies Allergy/AdvReac Type Severity Reaction Status Date / Time ciprofloxacin Allergy Rash Verified 04/02/18 11:12 PMH/Surg Hx/FS Hx/Imm Hx Cardiovascular History: Hypertension Cancer History: Breast Cancer - Surgical History Surgical History: Yes Surgery Procedure, Year, and Place: b/l eye lids 03/15/18 [facility] 2015 Left elbow fracture [place]. 1998 RIGHT BREAST LUMPECTOMY WITH AXILLARY DISSECTION, [facility]. TONSILLECTOMY A CHILD. COSMETIC NASAL/CHIN SURGERY [facility]. 1993 LEFT KNEE ACL REPAIR [facility]. LAPAROSCOPIC REMOVAL OF ABDOMINAL ABSCESS,. OPEN RUPTURED APPENDECTOMY, [facility]. 2006 LEFT KNEE SURGERY, [facility] - Family History Known Family History: Positive: Cardiac Disease, Hypertension - Social History Alcohol Use: Occasionally Alcohol Amount: wine Substance Use Type: None Smoking Status (MU): Never Smoked Tobacco Have You Smoked in the Last Year: No - Immunization History Most Recent Influenza Vaccination: Not the Most Recent Tetanus Shot: Unknown Most Recent Pneumonia Vaccination: 06/23/15 Vaccination Up to Date: Yes Review of Systems Constitutional: Negative Skin: Negative Respiratory: Negative Cardiovascular: Negative Gastrointestinal: Negative Musculoskeletal: Other: - LEFT FOOT PAIN PLANTAR ASPECT All Other Systems Reviewed And Are Negative: Yes Physical Exam Triage Information Reviewed: Yes Appearance: Well-Appearing, No Pain Distress, Well-Nourished Vital Signs: Initial Vital Signs Temp 98.3 F 04/02/18 11:21 Pulse 82 04/02/18 11:21 Resp 16 04/02/18 11:21 BP 137/73 04/02/18 11:21 Pulse Ox 99 04/02/18 11:21 Vital Signs Reviewed: Yes Eyes: Positive: Conjunctiva Clear ENT: Positive: Hearing grossly normal Neck: Positive: Supple Respiratory: Positive: No respiratory distress, No accessory muscle use Cardiovascular: Positive: Pulses Normal Abdomen Description: Positive: Soft Musculoskeletal: Positive: No Edema, Other: - TTP PLANTAR ASPECT LEFT FOOT OVERLYING 4TH METATARSAL HEAD. Neurological: Positive: Alert Psychological: Positive: Age Appropriate Behavior Skin: Negative: rashes Diagnostics - Radiology LEFT FOOT XRAY Xray Interpretation: No Acute Changes Radiology Interpretation Completed By: Radiologist Lower Extremity Course/Dx - Course Course Of Treatment: NO FB SEEN ON XRAY TODAY. RECOMMEND ORTHO FOR FURTHER EVAL OF PERSISTENT FOOT PAIN. POST OP SHOE TO HELP OFFLOAD PRESSURE FROM THE FRONT OF FOOT WHILE WALKING. - Differential Dx/Diagnosis Provider Diagnoses: LEFT FOOT PAIN Discharge - Sign-Out/Discharge Documenting (check all that apply): Patient Departure All imaging exams completed and their final reports reviewed: Yes - Discharge Plan Condition: Stable Disposition: HOME Referrals: Jazmyne Sands MD [Primary Care Provider] - If Needed Additional Instructions: FOLLOW-UP WITH ORTHOPEDICS FOR FURTHER EVALUATION OF YOUR PERSISTENT FOOT PAIN. NO RETAINED FOREIGN BODY SEEN ON XRAY TODAY. NO SIGN OF INFECTION. [facility] [place] - Billing Disposition and Condition Condition: STABLE Disposition: Home
--- NOTE | 2018-04-02 12:31 | RAD ---
INDICATION: Left foot pain evaluate for foreign body. COMPARISON: Comparison is made with a prior study from March 18, 2018. TECHNIQUE: 3 views of the left foot were obtained. FINDINGS: The bones are normal alignment. No fracture is seen. The previously noted small metallic foreign body which projected between the proximal third and fourth proximal phalanges is not visualized and appears to have been removed. Joint spaces appear maintained. IMPRESSION: INTERVAL REMOVAL OF THE PREVIOUSLY NOTED FOREIGN BODY.
== END 2018-04-02 13:22 | disposition home or self-care (01) ==
LOC: UCCORT 09:08
DX: M79.672 Pain in left foot (principal); Z88.1 Allergy status to other antibiotic agents; I10 Essential (primary) hypertension; Z85.3 Personal history of malignant neoplasm of breast
CPT/HCPCS: 99212; G0463